=== PATIENT | female | born 1990 | race Caucasian/White ===

== ENCOUNTER 2019-05-17 00:10 | Emergency (ER) | payer MEDICAID, SELFPAY ==
[2019-05-17 00:16] VITALS: BP 127/75; PULSE 76; RESP 18; TEMP 36.3; O2SAT 98
--- NOTE | 2019-05-17 00:27 | W.ED.GENAD ---
Discharge Plan Disposition Patient Disposition: HOME Condition: Good Discharge Details Chief Complaint: RashLesion Clinical Impression: Dermatitis Primary Care Provider: Mitra,Local ED Provider: Bogdan Sepulveda Meds and New Rx's Prescriptions: New hydroxyzine HCl 25 mg tablet 25 mg PO QID PRN (Reason: itching) Qty: 20 RF: 0 prednisone 10 mg tablet See Rx Instructions .ROUTE .COMPLEX Qty: 30 RF: 0 Continued levothyroxine [Synthroid] 175 mcg Tablet 175 mcg PO DAILY RF: 0 trazodone 100 mg Tablet 100 mg PO QHS RF: 0 Discharge Instructions Additional Instructions: Not completely sure what this rash is. It does not appear to be viral in nature. There are no lesions on mucosal surfaces and is unlikely to be Pritchett-Alvin. Does not appear to be measles, chickenpox, herpes. Also do not think it is necessarily related to poison gerard type reaction but seems to be dermatitis in nature. We will start you on steroids. Will try Atarax for the itching. Recommend seeing your [employer]AD[employer] 9 12 TUTOR today if possible today for evaluation of the vaginal symptoms. Recommend follow-up with a research asst as well. Return to ED if you develop fever, respiratory illness, lesions on mucosal surfaces. Discharge Data Discharge Date/Time-TO BE ENTERED AT DEPARTURE: 05/17/19 01:37 Medical Decision Making Not clear what this rash is from. I do not think it is related to poison gerard or such. It does look dermatitis-like in nature. There is no conjunctival, oral mucosal, vaginal mucosal lesions. There are no new medications, soaps, etc. There is nothing that looks like burrowing under the skin and nothing in the digit area. There are no viral symptoms otherwise. This is not a tick borne rash. I do not think this is viral. I do not think it Pritchett-Alvin. Not sure what to make of her complaints. It is not herpes. Labia majora swollen and tender. Does not appear to be a Bartholin gland at all. We will go ahead and try Atarax for the itching. We will start prednisone because I do think this is dermatitis in nature. She has [employer] [facility] [employer] [facility]OR at [facility] and will try to get into see them today for the complaints. We will also try to get in to dermatology over there. At discharge patient told the nurse she just got back from [place]. She has been there for about 3 months or so[place]. [place] that chigger bites are quite ubiquitous in the [facility] and that typically have a presentation like this. I reviewed chigger bites and presentation [place] Symptoms and pictures of the rash do appear consistent. There is even something referred to as summer penile syndrom with penile swelling, pruritus and dysuria so I suspect the vaginal complaints are similar and related. No specific treatment available other than symptomatic management. The larvae do not burrough like scabies. Hopefully the Atarax and prednisone help. Discussed with patient. HPI General Mode of arrival: ambulatory. Date/Time Provider Initiated Documentation: 05/17/19 00:26. Limitations to Documentation: no limitations. Information obtained by: patient. HPI Narrative: Patient presents to ED with a rash. She reports it has been there for couple weeks now. She states that acquaintances told her it was poison gerard. She has been using Benadryl orally, calamine lotion, showers, moisturizing creams. Nothing is helping. She denies any fevers or chills. She denies any arthralgias or myalgias. Rash initially involved the face and extremities as well as groin/perineal area. It has resolved on the face. It now involves extremities and perineal/groin area. She has dysuria as well as swelling in the vaginal area. She has intense pruritus and is been scratching constantly. Rash starts as a small red dot. Some look like a little blister at times. Eventually skin starts to peel. Nothing is helping. She presents now for evaluation. There are no new medications, soaps, detergents. She has not been sexually active in 6 months. She denies previous outbreaks of herpes. She denies previous rashes similar to this in the past. Related Data Home Medications Medication Instructions Recorded Confirmed hydroxyzine HCl 25 mg PO QID PRN #20 tab 05/17/19 levothyroxine [Synthroid] 175 mcg PO DAILY 05/17/19 05/17/19 prednisone See Rx Instructions .ROUTE 05/17/19 .COMPLEX #30 tab trazodone 100 mg PO QHS 05/17/19 05/17/19 Previous Rx's Medication Instructions Recorded hydroxyzine HCl 25 mg PO QID PRN #20 tab 05/17/19 prednisone See Rx Instructions .ROUTE 05/17/19 .COMPLEX #30 tab Allergies Allergy/AdvReac Type Severity Reaction Status Date / Time Penicillins Allergy Verified 05/17/19 02:13 General Stated Complaint: RashLesion AUDREY: 3 Review of Systems Review of Systems 08/26 Review of Systems completed and is negative except as stated above in HPI (Systems reviewed: Const, Eyes, ENT, Resp, CV, GI, , MSK, Skin, Neuro) PFSH Medical History Endometriosis (Chronic) Hypothyroid (Chronic) Social History Alcohol Intake: never Drug use: Never Substance use type: does not use Do you feel safe at home: Yes Do you feel safe in your relationship?: Yes Exam Narrative Exam Narrative: Vitals: Afebrile with normal vital signs. Const: Obese female in NAD. HEENT: NC/AT. Normal facial exam. Normal oral mucosa. Eyes: Normal conjunctiva and sclera. Neck: Supple. Trachea midline. Lungs: Normal respiratory effort. Neuro: A+O x 3. CN grossly in tact. Good strength and no focal deficit. Ext: No C/C/E. No deformity or tenderness. Skin: All 4 extremities with areas of excoriation as well as erythematous papular lesions as well as some areas of macular erythema with peeling skin. Same type of lesions noted in the groin area. Minimal type lesions noted on the trunk, neck. Face appears normal. : Female nurse present. Labia majora swollen, firm, and tender. Labia minora normal. Vaginal mucosa that is visualized is normal with no lesions. Course Vital Signs Temperature 97.3 F L 05/17/19 00:16 Pulse 76 05/17/19 00:16 Respiratory Rate 18 05/17/19 00:16 Blood Pressure 127/75 05/17/19 00:16 Pulse Oximetry 98 05/17/19 00:16 Temperature 97.3 F L 05/17/19 00:16 Temperature Source Tympanic 05/17/19 00:16 Pulse 76 05/17/19 00:16 Respiratory Rate 18 05/17/19 00:16 Blood Pressure 127/75 05/17/19 00:16 Pulse Oximetry 98 05/17/19 00:16 Oxygen Delivery Method Room Air 05/17/19 00:16 Oxygen Flow Rate 0 05/17/19 00:16 Pain Level 9 05/17/19 00:16
[2019-05-17] MEDS: predniSONE 20 MG TAB 60 MG PO (01:04)
[2019-05-17] MEDS: hydrOXYzine HCL 25 MG TAB PO (01:04)
[2019-05-17 02:07] VITALS: BP 127/75; PULSE 76; RESP 18; O2SAT 98
== END 2019-05-17 01:37 | disposition home or self-care (01) ==
PROVIDERS: Emergency Provider Emergency Medicine
DX: L30.9 Dermatitis, unspecified (principal)
CPT/HCPCS: 99283; J7512

== ENCOUNTER 2019-05-28 23:51 | Emergency (ER) | payer MEDICAID, SELFPAY ==
[2019-05-28 23:55] VITALS: BP 146/89; PULSE 89; RESP 20; TEMP 36.8; O2SAT 98
--- NOTE | 2019-05-29 00:37 | ED.GENADUL_ITS ---
Discharge Plan Disposition Patient Disposition: HOME Condition: Stable Discharge Details Chief Complaint: RashLesion Clinical Impression: Abscess of hand, right, Abscess of groin, left Primary Care Provider: Mitra,Local ED Provider: Augusto Pereira Home Meds and New Rx's Prescriptions: New sulfamethoxazole-trimethoprim [Bactrim DS] 800-160 mg tablet 1 tab PO Q12H Qty: 20 RF: 0 No Action levothyroxine [Synthroid] 175 mcg Tablet 175 mcg PO DAILY RF: 0 trazodone 100 mg Tablet 100 mg PO QHS RF: 0 hydroxyzine HCl 25 mg tablet 25 mg PO QID PRN (Reason: itching) Qty: 20 RF: 0 prednisone 10 mg tablet See Rx Instructions .ROUTE .COMPLEX Qty: 30 RF: 0 Discharge Instructions Instructions: Abscess (ED) Additional Instructions: you should be contacted with an appointment with general surgery to have your abscess drained soak your hand wound in water several times a day to keep it open follow up with your primary care provider within 2 weeks if you feel you are becoming more ill or have severe worsening of pain, high fevers return to the emergency department Medical Decision Making 29 yo female who was diagnosed with possible chiggers 2 weeks ago after being in [place] comes in with an abscess on her left groin area and also her right ring finger. The lesions on her arms have improved but still has small <1cm erythema papules on her abdomen. She denies drug use and has no evidence of ivdu and no murmurs on exam so doubt endocarditis. She states her ex cheated on her and she is concerned for HIV. She has no fevers or systemic symptoms to suggest sepsis. Will have nurse come in to evaluate groin wound, the right ring finger absccess is between the pip and dip joint and on the posterior surface and 1cm in diameter that will need I and D. Using nurse induction heat treater Sandra Blanc I evaluated the left groin. She has a 3cm abscess in the left inguinal region that is not draining. Will need to I and D this is as well I incised the hand wound and had 3cc of pus return. She did have pain with this despite having significant amount of analgesia. She declined to have groin drained here, will refer to general surgery for drainage of this. She will also f/u with pcp and return if worsening, will start on bactrim Differential Diagnosis abscess, chiggers, bed bugs HPI General Mode of arrival: ambulatory . Date/Time Provider Initiated Documentation: 05/28/19 23:52 . Limitations to Documentation: no limitations . Information obtained by: patient . History of Present Illness 29 year old F presents to the emergency department with the chief complaint of rash, described as moderate, Quality is described as other (itching), Patient started experiencing this week(s) (2) and it has been constant. No relieving factors improve symptom(s), No exacerbating factors reported . Patient did receive the following treatments prior to arrival, none Related Data Home Medications Medication Instructions Recorded Confirmed hydroxyzine HCl 25 mg PO QID PRN #20 tab 05/17/19 levothyroxine [Synthroid] 175 mcg PO DAILY 05/17/19 05/17/19 prednisone See Rx Instructions .ROUTE 05/17/19 .COMPLEX #30 tab trazodone 100 mg PO QHS 05/17/19 05/17/19 sulfamethoxazole-trimethoprim 1 tab PO Q12H #20 tab 05/29/19 [Bactrim DS] Previous Rx's Medication Instructions Recorded hydroxyzine HCl 25 mg PO QID PRN #20 tab 05/17/19 prednisone See Rx Instructions .ROUTE 05/17/19 .COMPLEX #30 tab sulfamethoxazole-trimethoprim 1 tab PO Q12H #20 tab 05/29/19 [Bactrim DS] Allergies Allergy/AdvReac Type Severity Reaction Status Date / Time Penicillins Allergy Verified 05/17/19 02:13 General Stated Complaint: RashLesion AUDREY: 3 Review of Systems Review of Systems All systems reviewed & are unremarkable except as noted in HPI and below Constitutional Denies chills, Denies fever(s) and Denies weakness ENT Denies change in voice Cardiovascular Denies chest pain and Denies dyspnea Respiratory Denies cough and Denies dyspnea Gastrointestinal Denies abdominal pain, Denies nausea and Denies vomiting Genitourinary Denies dysuria Neurologic Denies weakness [facility] Medical History (Updated 05/17/19 @ 02:18 by Bogdan Sepulveda MD) Endometriosis (Chronic) Hypothyroid (Chronic) Social History Smoking/Tobacco Use Status: Never Alcohol Intake: never Drug use: Never Substance use type: does not use Do you feel safe at home: Yes Do you feel safe in your relationship?: Yes Exam Const General: no acute distress Orientation: alert HENMT Head: normal to inspection Ears: external ears normal General nose exam: external nose normal Mouth: moist mucous membranes Eyes General: appearance normal, both eyes and all related structures Neck Neck: normal visual inspection Resp Effort & Inspection: normal respiratory effort and able to speak in complete sentences Cardio Rate: regular rate Skin General skin exam: elasticity normal Neuro General: alert and oriented x3 Extrem General: normal to inspection Psych Mental Status: mental status grossly normal Course Vital Signs Temperature 36.8 C 05/28/19 23:55 Pulse 89 05/28/19 23:55 Respiratory Rate 20 05/28/19 23:55 Blood Pressure 146/89 H 05/28/19 23:55 Pulse Oximetry 98 05/28/19 23:55 Temperature 36.8 C 05/28/19 23:55 Temperature Source Tympanic 05/28/19 23:55 Pulse 89 05/28/19 23:55 Respiratory Rate 20 05/28/19 23:55 Respiratory Effort Non-Labored 05/29/19 00:03 Blood Pressure 146/89 H 05/28/19 23:55 Pulse Oximetry 98 05/28/19 23:55 Oxygen Delivery Method Room Air 05/28/19 23:55 Oxygen Flow Rate 0 05/28/19 23:55 Pain Level 9 05/28/19 23:55 Procedures Abscess I/D Site: Hand Side (if applicable): Right Local Anesthetic: Lidocaine 1% and With Epi Amount of anesthesia used (mL): 5 Technique: Needle Aspiration and Incised with #11 Blade Amount of fluid expressed (mL): 3 Irrigation: Yes Packing used?: None Complications: Pain
[2019-05-29] MEDS: Sulfameth/Trimeth DS TAB 1 TAB PO (01:11)
[2019-05-29 01:25] VITALS: BP 146/89; PULSE 89; RESP 20; O2SAT 98
--- NOTE | 2019-05-29 07:14 | NUR.NOTE ---
Nursing Note: Faxed referral to General Surgery for follow up. Faxed referral to Dr. Alex REECE environmental conservation officer for telephone call for referral for no PCP. Quita Monroy.
[2019-05-30 10:10] LABS: HIV-1/2 Ag & Ab Screen Negative (NEGAT)
== END 2019-05-29 01:18 | disposition home or self-care (01) ==
PROVIDERS: Emergency Provider Emergency Medicine
DX: L02.511 Cutaneous abscess of right hand (principal); L02.214 Cutaneous abscess of groin
CPT/HCPCS: 10060; 36415; 87077; 87389; 99283; 87070; 87186; 87205

== ENCOUNTER 2019-05-30 15:00 | Outpatient (REF) | payer MEDICAID, SELFPAY | END 2019-05-30 15:20 | LOC: LBN 15:00 | PROVIDERS: PCP Nurse Practitioner Family; Visit Provider Surgery | DX: L02.214 Cutaneous abscess of groin (principal) | CPT/HCPCS: 87070; 87205 ==

== ENCOUNTER 2022-10-28 10:53 | Emergency (ER) | payer MEDICAID, SELFPAY ==
[2022-10-28 10:58] VITALS: BP 150/98; PULSE 90; RESP 18; TEMP 36.8; O2SAT 99
--- NOTE | 2022-10-28 11:30 | ED.GENADUL_ITS ---
Discharge Plan Disposition Patient Disposition: Home Condition: Stable Discharge Details Clinical Impression: Flu-like symptoms Primary Care Provider: Sandy Sahu ED Provider: Evy Woods Home Meds and New Rx's Prescriptions: New albuterol sulfate [Proventil HFA] 90 mcg/actuation HFA aerosol inhaler 2 puff inhalation Q6H PRNQty: 6.7 0RF Continued albuterol sulfate 90 mcg/actuation Hfa Aerosol Inhaler INHALATION levetiracetam [Keppra] 1,000 mg Tablet 750 mg PO BID levothyroxine [Synthroid] 175 mcg Tablet 175 mcg PO DAILY trazodone 100 mg Tablet 100 mg PO QHS hydroxyzine HCl 25 mg tablet 25 mg PO QID PRN (Reason: itching) Qty: 20 0RF sulfamethoxazole-trimethoprim [Bactrim DS] 800-160 mg tablet 1 tab PO Q12H Qty: 20 0RF Discharge Instructions Additional Instructions: take ibuprofen and tylenol for symptom control albuterol 2 puffs every 4-6 as needed for cough, wheezing, shortness of breath take prednisone as prescribed return earlier with new or worsening complaints your tests today were negative, suspect viral symptoms return earlier with new or worsening complaints Stand Alone Forms: Work Release Discharge Data Discharge Date/Time-TO BE ENTERED AT DEPARTURE: 10/28/22 11:56 Medical Decision Making This 32-year-old female presents with upper respiratory Patient negative for flu and COVID, I suspect viral etiology of complaints, vital stable Supplied with albuterol Return precautions discussed and patient expressed understanding Recheck with primary care physician in 2 to 3 days for reassessment Medical Records Medical records reviewed: Yes I reviewed the patient's medical records. Lab Data Lab results reviewed: Yes I reviewed the patient's lab results. HPI General Date/Time Provider Initiated Documentation: 10/28/22 11:17 . HPI Narrative: This 32-year-old female presents with fever, right ear pain, sinus pain, sore throat and cough for the past 3 days. Denies chest pain or shortness of breath. Denies chance of . Related Data Home Medications Medication Instructions Recorded Confirmed hydroxyzine HCl 25 mg tablet 25 mg PO QID PRN itching #20 tabs 05/17/19 05/30/19 levothyroxine 175 mcg tablet 175 mcg PO DAILY 05/17/19 10/28/22 (Synthroid) trazodone 100 mg tablet 100 mg PO QHS 05/17/19 10/28/22 sulfamethoxazole 800 1 tab PO Q12H #20 tabs 05/29/19 05/30/19 mg-trimethoprim 160 mg tablet (Bactrim DS) albuterol sulfate 90 mcg/actuation inhalation 10/28/22 aerosol inhaler albuterol sulfate 90 mcg/actuation 2 puff inhalation Q6H PRN #6.7 10/28/22 aerosol inhaler (Proventil HFA) grams levetiracetam 1,000 mg tablet 750 mg PO BID 10/28/22 10/28/22 (Keppra) Previous Rx's Medication Instructions Recorded hydroxyzine HCl 25 mg tablet 25 mg PO QID PRN itching #20 tabs 05/17/19 sulfamethoxazole 800 1 tab PO Q12H #20 tabs 05/29/19 mg-trimethoprim 160 mg tablet (Bactrim DS) albuterol sulfate 90 mcg/actuation 2 puff inhalation Q6H PRN #6.7 10/28/22 aerosol inhaler (Proventil HFA) grams Allergies Allergy/AdvReac Type Severity Reaction Status Date / Time Penicillins Allergy Verified 05/30/19 14:10 General Stated Complaint: Sorethroat AUDREY: 4 Review of Systems All systems reviewed & are unremarkable except as noted in HPI and below PFSH All Active Problems (Updated 10/28/22 @ 11:37 by SHAWN Starr) Flu-like symptoms (Acute) Medical History (Updated 10/28/22 @ 11:37 by SHAWN Starr) Endometriosis Hypothyroid Social History (Updated 05/30/19 @ 14:13 by Vita Marx RN) Smoking/Tobacco Use Status: Never Smoking risk assessment performed?: Yes Alcohol Intake: never Drug use: Never Substance use type: does not use Do you feel safe at home: Yes Do you feel safe in your relationship?: Yes Exam Const General: cooperative, comfortable and no acute distress HENMT Other: Uvula midline, oropharynx patent Eyes Pupils: PERRL Resp Effort & Inspection: normal respiratory effort Auscultation: clear to auscultation bilaterally Cardio Rate: regular rate Rhythm: regular rhythm Skin General skin exam: no rashes or lesions noted Neuro General: patient alert and patient oriented x3 Course Vital Signs Vital signs: Vital Signs Temperature 36.8 C 10/28/22 10:58 Pulse 90 10/28/22 10:58 Respiratory Rate 18 10/28/22 10:58 Blood Pressure 150/98 H 10/28/22 10:58 Pulse Oximetry 99 10/28/22 10:58 Temperature 36.8 C 10/28/22 10:58 Temperature Source Oral 10/28/22 10:58 Pulse 90 10/28/22 10:58 Respiratory Rate 18 10/28/22 10:58 Respiratory Effort Non-Labored 10/28/22 11:03 Blood Pressure 150/98 H 10/28/22 10:58 Blood Pressure Position Sitting 10/28/22 10:58 Pulse Oximetry 99 10/28/22 10:58 Oxygen Delivery Method Room Air 10/28/22 10:58 Oxygen Flow Rate 0 10/28/22 10:58 Lab/Test Results Lab/Test Results: 10/28/22 11:05 Tonsil - Not Specified Group A Streptococcus Culture - Pending POC Strep Test-LAYNE(Rapid) Start: 10/28/22 11:01 Freq: Status: Active Protocol: Document 10/28/22 11:16 RASHAWN (Rec: 10/28/22 11:16 [email or web address] [id number]) Strep test-LAYNE(Rapid)-POC POC-Strep test-LAYNE (Rapid) Negative POC-Strep test-LAYNE (Rapid) Negative
== END 2022-10-28 11:56 | disposition home or self-care (01) ==
PROVIDERS: Emergency Provider Physician Assistant; PCP Nurse Practitioner Family
DX: R50.9 Fever, unspecified (principal); H92.01 Otalgia, right ear; J02.9 Acute pharyngitis, unspecified; R05.1 Acute cough
CPT/HCPCS: 87880; 99283; 87081

== ENCOUNTER 2023-06-29 16:13 | Emergency (ER) | payer MEDICAID, SELFPAY ==
--- NOTE | 2023-06-29 16:15 | RT.EKG_ITS ---
APPROVED REPORT Exam: Resting ECG Reason for Exam: chest pain Patient Location: E HR:79 bpm ECG Measurements Heart Rate 79 AXIS KS 147 P 47 QRSd 90 QRS 49 QT 395 T 31 QTc 454 Conclusion Sinus rhythm...normal P axis, V-rate 60- 99 Probable left atrial enlargement...P >50mS, <-0.10mV V1 nonspecific ST T wave changes. No STEMI
--- NOTE | 2023-06-29 16:15 | DI.RAD_ITS ---
Exam(s) XR PORTABLE CHEST AP EXAM: XR PORTABLE CHEST AP CLINICAL HISTORY: chest pain TECHNIQUE: 2D digital imaging was performed. COMPARISON: No exams were available for comparison FINDINGS: LUNGS: Suboptimally inflated but clear. No pleural abnormality seen. HEART: Normal size. AORTA: Normal diameter. BONES: Unremarkable for age. Soft tissues: Unremarkable. IMPRESSION: No acute findings. DATA REPOSITORY: RADIATION DOSE DELIVERED:
--- NOTE | 2023-06-29 16:15 | RT.EKG_ITS ---
APPROVED REPORT Exam: Resting ECG Reason for Exam: chest pain Patient Location: E HR:86 bpm ECG Measurements Heart Rate 86 AXIS WI 146 P 45 QRSd 92 QRS 48 QT 402 T 39 QTc 480 Conclusion Sinus rhythm...normal P axis, V-rate 60- 99 T wave flattening II,II.aVF. No previous, no STEMI borderline short WI interval.
[2023-06-29 16:20] VITALS: BP 157/101; PULSE 85; RESP 18; TEMP 36.4; O2SAT 98
[2023-06-29 16:44] VITALS: RESP 18
[2023-06-29 16:48] LABS: Abs Immature Grans 0.06 10^3/uL (0.0-0.06); Absolute Basophil Count 0.04 10^3/uL (0.0-0.2); Absolute Monocyte Count 0.53 10^3/uL (0.1-0.8); Absolute Neutrophil Count 7.47 10^3/uL (1.2-6.7); Basophils % 0.4; Eosinophils % 1.8; Immature Grans % 0.5; Lymphocytes % 25.9; MCH 29.4 pg (27.0-33.0); MCHC 32.5 % (32.0-36.0); MCV 91 fL (80-95); MPV 9.1 fL (8.0-11.0); Monocytes % 4.7; Neutrophils % 66.7; Platelet Count 283 10^3/uL (130-400); RBC 4.42 10^6/uL (3.93-5.22); RDW-SD 46.5 fL
[2023-06-29 17:07] LABS: ALT 53 U/L (14-59); AST 30 U/L (15-37); Alkaline Phosphatase 104 U/L (46-116); Anion Gap 11.5 mmol/L (3-11); BUN 10 mg/dL (7-18); Bilirubin, Total 0.2 mg/dL (0.2-1.0); CO2 26.5 mmol/L (21.0-32.0); CREATININE 0.9 mg/dL (0.55-1.02); Calcium 8.9 mg/dL (8.5-10.1); Chloride 102 mmol/L (98-107); Glucose 93 mg/dL (74-106); Magnesium 1.9 mg/dL (1.8-2.4); Potassium 3.6 mmol/L (3.5-5.1); Sodium 140 mmol/L (136-145); Total Protein 8.1 g/dL (6.4-8.2); Troponin I < 50 ng/L (<or=60)
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
[2023-06-29] MEDS: Aspirin 81 MG CHEW 324 MG CH (17:49)
[2023-06-29] MEDS: ACETAMINOPHEN 1,000 MG/100 ML BTL 400 MG IVPB (17:49)
[2023-06-29] MEDS: Ketorolac 15 MG/ML VIAL IVP (18:18)
--- NOTE | 2023-06-29 18:18 | NUR.NOTE ---
Nursing Note: pulled 30mg vial of ketrolac out of the pyxis becasue there were not any 15mg left. wasted 15mg and administered 15mg
[2023-06-29 18:26] LABS: D-Dimer 244 ng/mlFEU (<500)
[2023-06-29 18:50] VITALS: BP 154/94; PULSE 71
[2023-06-29 19:01] VITALS: BP 147/86; PULSE 71
[2023-06-29 19:31] VITALS: BP 151/90; PULSE 70
[2023-06-29 20:02] VITALS: BP 165/96; PULSE 75
[2023-06-29 20:23] LABS: Troponin I < 50 ng/L (<or=60)
== END 2023-06-29 21:04 | disposition home or self-care (01) ==
PROVIDERS: Emergency Medicine Emergency Medical Services; Emergency Provider Emergency Medicine Emergency Medical Services; PCP Naturopath
DX: R07.9 Chest pain, unspecified (principal); I10 Essential (primary) hypertension
CPT/HCPCS: 80053; 93005; 96365; 96375; 99284; 71045; 83735; 84484; 85025; 85379; 93010; J0131; J1885